=== PATIENT | male | born 1945 | race Caucasian/White ===

== ENCOUNTER → 2017-06-10 | Outpatient (CLI) | payer OTHER | LOC: BRMIMAGING 16:19 | PROVIDERS: ATTEND Registered Nurse | DX: Z13.83 Encounter for screening for respiratory disorder NEC (principal) | CPT/HCPCS: 71046-PO ==

== ENCOUNTER → 2017-06-18 | Outpatient (CLI) | payer OTHER | LOC: BRMIMAGING 14:46 | PROVIDERS: ATTEND Registered Nurse | DX: R06.09 Other forms of dyspnea (principal); R60.0 Localized edema; M48.14 Ankylosing hyperostosis [Forestier], thoracic region | CPT/HCPCS: 71046-PO ==